=== PATIENT | female | born 1975 | race Caucasian/White ===

== ENCOUNTER 2020-09-17 10:33 | Emergency (ER) | payer BC, SELFPAY ==
--- NOTE | 2020-09-17 10:30 | ECG_ITS ---
APPROVED REPORT Exam: Resting ECG HR:71 bpm ECG Measurements Heart Rate 71 AXES GA 146 P 78 QRSd 80 QRS 76 QT 372 T 80 QTc 404 Conclusion Sinus rhythm with marked sinus arrhythmia Otherwise normal ECG Electronically signed by : Adam Mtz, 09/19/2020 21:08:45
[2020-09-17 10:34] VITALS: BP 97/65; PULSE 86; RESP 12; TEMP 36.6; O2SAT 99; BMI 28.1
[2020-09-17 10:40] VITALS: BP 97/65; PULSE 73; O2SAT 98
--- NOTE | 2020-09-17 10:41 | XR_ITS ---
PROCEDURE: XR CHEST 2V Referring Doctor: Terence Pillai Patient Age:45Y CLINICAL HISTORY: CP Chest pain pain in back started this morning. Patient vapes COMPARISON: No exams were available for comparison FINDINGS: The lungs are well expanded and clear with nothing definitely acute. No focal infiltrate or consolidation. No pneumothorax, no pneumonia. No pleural effusion. Heart is normal in size but normal pulmonary vascularity with normal liat and mediastinal structures satisfactory. Chest wall unremarkable but T-spine unremarkable IMPRESSION: Lungs clear with nothing definitely acute. Negative chest Dictated by: Waldo Santoyo MD 09/17/2020 11:36 Waldo Santoyo MD in [place] 09/17/2020 11:36
--- NOTE | 2020-09-17 10:48 | [facility].EDGENADL ---
ED Disposition Clinical Impression: Chest pain Disposition: Home, Self-Care Condition on Discharge: Good Additional Instructions: Follow up with primary care physician for Holter monitor. Please return with any new or worsening symptoms. Referrals: PCP,No [Non-Staff] - - Critical Care Critical Care Time: No Attestation: On 09/17/20, the high probability of a clinically significant, sudden or life threatening deterioration of the following system(s) required my full and direct attention, intervention and personal management. The time I documented below is in addition to time spent performing reported procedures but includes the following listed in this critical care notation. Medical Decision Making - Medical Records Medical records reviewed: Yes: I reviewed the patient's medical records. - Stanley Inquiry Pt receiving controlled substance: No Vital Signs: 09/17/20 10:34 09/17/20 10:40 Temperature 97.9 F Temperature Source Temporal Artery Scan Pulse Rate [Right] 86 73 Respiratory Rate 12 Blood Pressure [Right Arm] 97/65 L 97/65 L Blood Pressure Mean [Right Arm] 75 75 Blood Pressure Source [Right Arm] Automatic Cuff Blood Pressure Position [Right Arm] Sitting 02 Sat by Pulse Oximetry 99 98 Oxygen Delivery Method Room Air - Lab Data Lab Results 09/17/20 10:47: WBC 17.8 H, RBC 4.59, Hgb 14.1, Hct 43.5, MCV 94.9, MCH 30.7, MCHC 32.4, RDW 12.5, Plt Count 237, MPV 8.5, Neut % (Auto) 81.9 H, Lymph % (Auto) 15.5, Sutter % (Auto) 1.4 L, Eos % (Auto) 1.0, Baso % (Auto) 0.2, Neut # (Auto) 14.6 H, Lymph # (Auto) 2.8, Sutter # (Auto) 0.3, Eos # (Auto) 0.2, Baso # (Auto) 0.0, Total Counted 100, Neutrophils % (Manual) 79 H, Lymphocytes % (Manual) 17, Monocytes % (Manual) 2, Eosinophils % (Manual) 2, Platelet Estimate Normal, RBC Morphology Normal 09/17/20 10:47: Sodium 139, Potassium 3.9, Chloride 106, Carbon Dioxide 25, Anion Gap 11.9, BUN 11, Creatinine 0.70, Estimated Creat Clear 134, Estimated GFR 91, Est GFR ( Amer) 111, Glucose 114 H, Calcium 9.3, Troponin I < 0.01 Result diagrams: 09/17/20 10:47 09/17/20 10:47 Orders (Tests/Meds): ED MEDICATIONS Generic Name Dose Route Start Last Admin Trade Name Marce PRN Reason Stop Dose Admin Nitroglycerin 0.4 mg 09/17/20 10:41 Nitroglycerin 0.4mg Sl Tablet SL 09/18/20 10:41 [id number] PRN Chest Pain Discontinued Medications Generic Name Dose Route Start Last Admin Trade Name Freq PRN Reason Stop Dose Admin Aspirin 324 mg 09/17/20 10:41 09/17/20 11:00 Aspirin 81mg Chewable Tablet PO 09/17/20 10:42 324 mg ONCE ONE Administration ORDERS Category Date Time Status XR chest 2V Stat Exams 09/17/20 10:41 Taken Troponin I Q3H Lab 09/17/20 13:45 Ordered Troponin I Q3H Lab 09/17/20 16:45 Ordered ECG Request by /Nse Stat Y 09/17/20 10:41 Ordered Medical Decision Narrative: Patient is a 45-year-old female with no significant past medical history who presents to the emergency department today with chest pain radiating to her back. Pain is resolved. She has had a CT scan in the past which reassures me for aortic dissection. Differential still includes arrhythmia, ACS, esophageal spasm. CBC, CMP, troponins x2, EKG, chest x-ray ordered. Given aspirin. EKG nonactionable. Notable for white count of 18, however patient is currently asymptomatic and has a normal neurologic exam. Infection very unlikely. Heart score 0. Most likely esophageal spasm, however could be arrhythmia. Directed to follow-up with primary care physician for Holter monitor. Return precautions given. Discharged General Adult HPI - General Chief complaint: Chest Pain Stated complaint: chest pain, Time Seen by Provider: 09/17/20 10:35 Mode of Arrival: EMS Limitations: No Limitations Description of Symptoms (Recalled from ER Triage Doc. by RN): Pt states this morning while she was drinking her coffee she began to feel all flush, diaphoretic, and d
[2020-09-17 10:55] LABS: Basophils % 0.2 % (0.1-2.0); Eosinophils # 0.2 K/mm3 (0.0-0.4); Hematocrit 43.5 % (37.0-47.0); Hemoglobin 14.1 g/dL (12.2-16.2); Lymphocytes # 2.8 K/mm3 (0.7-4.5); Lymphocytes % 15.5 % (10-50); Mean Corpuscular HGB Conc 32.4 g/dL (31.8-35.4); Mean Corpuscular Hemoglobin 30.7 pg (27.0-31.2); Mean Corpuscular Volume 94.9 fl (81-99); Mean Platelet Volume 8.5 fl (7.4-10.4); Monocytes # 0.3 K/mm3 (0.1-1.0); Monocytes % 1.4 % (1.7-9.3); Neutrophils # 14.6 K/mm3 (1.8-7.8); Neutrophils % 81.9 % (37.0-80.0); Platelet Count 237 K/mm3 (142-424); Red Blood Count 4.59 M/mm3 (4.20-5.40); Red Cell Distribution Width 12.5 % (11.5-17.5); White Blood Count 17.8 K/mm3 (4.8-10.8)
[2020-09-17 11:00] LABS: Chloride 106 mmol/L (98-107); Potassium 3.9 mmoL/L (3.5-5.1); Sodium 139 mmol/L (136-145)
[2020-09-17 11:01] LABS: MANUAL DIFFERENTIAL MANUAL DIFFERENTIAL (MANUAL DIFF)
[2020-09-17 11:03] LABS: Anion Gap 11.9 mEq/L (5-15); Blood Urea Nitrogen 11 mg/dl (7-17); Calcium 9.3 mg/dl (8.4-10.2); Carbon Dioxide 25 mmol/L (22.0-30.0); Creatinine Clearance Estimated 134 mL/min (50-200); Estimated Glomerular Filt Rate 91 ml/min (>60); GFR (African American) 111 ML/MIN (>60); Glucose 114 mg/dl (74-100)
[2020-09-17 11:14] LABS: Eosinophils % 2 % (0-3); Lymphocytes % 17 % (10-50); Monocytes % 2 % (2-9); Neutrophils % 79 % (42-76); Platelet Estimate Normal; RBC Morphology Normal; Total Cells Counted 100
[2020-09-17 11:16] LABS: Troponin I < 0.01 ng/ml (0.00-0.034)
[2020-09-17 11:48] VITALS: BP 100/56; PULSE 62; RESP 20; TEMP 36.6; O2SAT 97
== END 2020-09-17 11:50 | disposition home or self-care (01) ==
PROVIDERS: Emergency Provider Emergency Medicine; PCP Family Medicine
DX: R07.9 Chest pain, unspecified (principal); R42 Dizziness and giddiness
CPT/HCPCS: 71046; 80048; 84484; 85007; 85025; 93005; 99283